=== PATIENT | female | born 1975 | race Asian ===

== ENCOUNTER 2017-01-22 17:57 | Inpatient (IN) | payer SELFPAY ==
[~2017-01-22] VITALS: Ht 165 cm; Wt 79.4 kg
[2017-01-22] MEDS ORDERED: CEFAZOLIN 2 GM IVPB PREMIX 50 ML IV ONE (18:15)
[2017-01-22] MEDS ORDERED: CITRIC ACID/SODIUM CITRATE 30 ML UDC PO ONE (18:15)
[2017-01-22 18:43] LABS: BASOPHILS % (AUTO) 0.6 % (0.0-2.0); EOSINOPHILS % (AUTO) 0.4 % (0.0-4.0); HEMATOCRIT 37.1 % (36-48); HEMOGLOBIN 12.3 g/dL (12.0-16.0); LYMPHOCYTES # (AUTO) 2.1 K/uL (1.0-5.5); LYMPHOCYTES % (AUTO) 26.7 % (20.5-51.5); MEAN CORPUSCULAR HEMOGLOBIN 28 pg (27-31); MEAN CORPUSCULAR HGB CONC 33 % (32-36); MEAN CORPUSCULAR VOLUME 85 fL (79.0-98.0); MONOCYTES # (AUTO) 0.5 K/uL (0.0-1.0); MONOCYTES % (AUTO) 6.8 % (1.7-9.3); NEUTROPHILS # (AUTO) 5.4 K/uL (1.8-7.7); NEUTROPHILS % (AUTO) 65.5 % (40.0-70.0); PLATELET COUNT (AUTO) 294 K/uL (130-430); RED BLOOD CELL COUNT(AUTO) 4.36 MIL/uL (4.2-6.2); RED CELL DISTRIBUTION WIDTH 14.9 % (9.0-15.0)
[2017-01-22] MEDS ORDERED: MORPHINE SULFATE 10MG/10ML PF AMP EP ONE (19:03)
[2017-01-22] MEDS ORDERED: BUPIVACAINE /PF 0.75% 10 ML VIAL INJ ONE (19:03)
[2017-01-22] MEDS ORDERED: OXYTOCIN 10 UNIT/ML VIAL IV ONE (19:03)
[2017-01-22] MEDS ORDERED: LR 1,000 ML IV.SOLN IV ONE (19:03)
[2017-01-22] MEDS ORDERED: NS IRRIG SOLN 1000 ML IR ONE (19:03)
[2017-01-22] MEDS ORDERED: LR 1,000 ML IV SCH (19:57)
[2017-01-22] MEDS ORDERED: HYDROmorphone 2 MG/ML VIAL IVP PRN ×2 (20:00)
[2017-01-22] MEDS ORDERED: HYDROmorphone 1 MG INJ. 1 MG/ML AMPUL IVP PRN ×2 (20:00)
[2017-01-22] MEDS ORDERED: DIPHENHYDRAMINE INJ 50 MG/ML VIAL IVP PRN (20:00)
[2017-01-22] MEDS ORDERED: MORPHINE SULFATE 10MG/10ML PF AMP SP SCH (20:00)
[2017-01-22] MEDS ORDERED: MEPERIDINE HCL/PF 25 MG/ML DISP.SYRIN IVP PRN ×2 (20:00)
[2017-01-22] MEDS ORDERED: NALBUPHINE HCL 10 MG/ML AMP IVP PRN (20:00)
[2017-01-22] MEDS ORDERED: ePHEDrine sulfate 50 MG/ML VIAL IVP PRN (20:00)
[2017-01-22] MEDS ORDERED: ONDANSETRON HCL 4 MG/2 ML VIAL IVP PRN ×2 (20:00)
[2017-01-22] MEDS ORDERED: KETOROLAC TROMETHAMINE 30 MG VIAL IVP PRN ×2 (20:00)
[2017-01-22] MEDS ORDERED: NALOXONE HCL 0.4 MG/ML AMP (NARCAN) IVP PRN (20:00)
[2017-01-22] MEDS ORDERED: OXYTOCIN/NORMAL SALINE 1,000 ML IV ONE (21:11)
[2017-01-22] MEDS ORDERED: LANOLIN 7 GM OINT. TP PRN (21:15)
[2017-01-23 00:36] VITALS: BP_SYST 108
[2017-01-23] MEDS ORDERED: ceFAZolin SODIUM 1 GM VIAL ONE (03:19)
[2017-01-23] MEDS ORDERED: ceFAZolin SODIUM 2 GM in D5W 100 ML IV SCH ×3 (04:00)
[2017-01-23] MEDS: LR 1,000 ML IV SCH ×2 (05:11→07:41)
[2017-01-23 06:32] LABS: BASOPHILS % (AUTO) 0.1 % (0.0-2.0); EOSINOPHILS % (AUTO) 0.2 % (0.0-4.0); HEMATOCRIT 30.1 % (36-48); HEMOGLOBIN 10.1 g/dL (12.0-16.0); LYMPHOCYTES # (AUTO) 1.3 K/uL (1.0-5.5); LYMPHOCYTES % (AUTO) 13.3 % (20.5-51.5); MEAN CORPUSCULAR HEMOGLOBIN 28 pg (27-31); MEAN CORPUSCULAR HGB CONC 34 % (32-36); MEAN CORPUSCULAR VOLUME 84 fL (79.0-98.0); MONOCYTES # (AUTO) 0.5 K/uL (0.0-1.0); MONOCYTES % (AUTO) 4.8 % (1.7-9.3); NEUTROPHILS # (AUTO) 7.9 K/uL (1.8-7.7); NEUTROPHILS % (AUTO) 81.6 % (40.0-70.0); PLATELET COUNT (AUTO) 243 K/uL (130-430); RED BLOOD CELL COUNT(AUTO) 3.57 MIL/uL (4.2-6.2); RED CELL DISTRIBUTION WIDTH 14.3 % (9.0-15.0); WHITE BLOOD COUNT (AUTO) 9.7 K/uL (4.8-10.8)
[2017-01-23] MEDS: LEVOTHYROXINE SODIUM 0.05 MG TABLET PO SCH (09:17)
[2017-01-23] MEDS: PIPERACILLIN/TAZO 3.375/DEX-IS 50 ML IV SCH ×3 (09:40→22:30)
[2017-01-23] MEDS ORDERED: OXYCODONE/ACETAMINOPHEN 5-325 TABLET PO PRN ×2 (16:00)
[2017-01-23] MEDS ORDERED: HYDROcodone/ACETAMIN 5-325 MG TAB (NORCO/ VICODIN) PO PRN (16:00)
[2017-01-23] MEDS: IBUPROFEN 600 MG TABLET PO SCH ×2 (17:37→23:01)
[2017-01-23] MEDS: SIMETHICONE 80 MG TAB.CHEW PO PRN (22:44)
[2017-01-23] MEDS: DOCUSATE SODIUM 100 MG CAPSULE PO PRN (22:44)
[2017-01-24] MEDS: IBUPROFEN 600 MG TABLET PO SCH ×2 (05:10→12:12)
[2017-01-24] MEDS: PIPERACILLIN/TAZO 3.375/DEX-IS 50 ML IV SCH ×3 (05:11→16:57)
[2017-01-24] MEDS: LEVOTHYROXINE SODIUM 0.05 MG TABLET PO SCH (07:00)
[2017-01-24] MEDS: DOCUSATE SODIUM 100 MG CAPSULE PO PRN (12:12)
[2017-01-24] MEDS: SIMETHICONE 80 MG TAB.CHEW PO PRN (12:13)
[2017-01-24] MEDS: LR 1,000 ML IV SCH (21:11)
[2017-01-25] MEDS: SIMETHICONE 80 MG TAB.CHEW PO PRN (02:15)
[2017-01-25] MEDS: DOCUSATE SODIUM 100 MG CAPSULE PO PRN (02:15)
[2017-01-25] MEDS: IBUPROFEN 600 MG TABLET PO SCH ×3 (06:14→12:10)
[2017-01-25] MEDS: PIPERACILLIN/TAZO 3.375/DEX-IS 50 ML IV SCH ×3 (06:14→12:10)
[2017-01-25] MEDS ORDERED: SENNOSIDES 8.6 MG TABLET PO PRN (09:30)
== END 2017-01-25 16:15 | disposition home or self-care (01) | DRG 766 ==
LOC: SPU 17:57
PROVIDERS: ADMIT Obstetrics & Gynecology; ATTEND Obstetrics & Gynecology
PROC: 0DNW0ZZ Release Peritoneum, Open Approach (ICD-10-PCS; 2017-01-22)
PROC: 10D00Z1 Extraction of Products of Conception, Low, Open Approach (ICD-10-PCS; principal; 2017-01-22 21:00)
DX: O34.211 Maternal care for low transverse scar from previous cesarean delivery (principal); E03.9 Hypothyroidism, unspecified; N73.6 Female pelvic peritoneal adhesions (postinfective); O99.89 Other specified diseases and conditions complicating pregnancy, childbirth and the puerperium; O99.284 Endocrine, nutritional and metabolic diseases complicating childbirth; Z3A.38 38 weeks gestation of pregnancy; Z37.0 Single live birth; Z79.899 Other long term (current) drug therapy; O09.523 Supervision of elderly multigravida, third trimester
CPT/HCPCS: 36415; 85025; 86886; 86900; 86901; 94760; J0690; J2274; J2543; J2590; J3490; J7060; J7120